=== PATIENT | female | born 1970 | race Caucasian/White ===

== ENCOUNTER 2019-11-12 13:48 | Day surgery (SDC) | payer OTHER, SELFPAY ==
[2019-11-11 08:04] VITALS: BMI 54.1
[2019-11-12] VITALS (11 sets, daily range): BP systolic 138–166; BP diastolic 80–133; PULSE 65–92; RESP 10–19; TEMP 36.6–37; O2SAT 96–100; BMI 54.1
[2019-11-12] MEDS: LACTATED RINGERS 1,000 ML 42 ML IV (14:33)
--- NOTE | 2019-11-12 15:21 | P.OP_ITS ---
Operative Date/Time/Diagnoses Date of procedure: 11/12/19 Time of procedure: 15:41 Pre-op diagnosis: Right knee pain with loose body Post-op diagnosis: same Procedure & Clinicians Procedure: Right knee arthroscopy with removal of loose body Same procedure as scheduled: Yes Indications: This is a 49-year-old female with incapacitating right knee pain and a history of fairly marked locking. Workup with radiographs and an MRI scan showed evidence of a loose body in she is brought the operating room for arthroscopy with repair is indicated. 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 He underwent the induction of a spinal anesthesia. There were carefully positioned on the operating table in a supine position with the non operative leg in well leg abdul and the operative leg had a tourniquet wrapped around it and then it was placed in a leg abdul. Antibiotics were given and a time-out was performed. The patient was prepped and draped in standard sterile fashion. Arthroscopy portals were established with a supra patellar lateral arthroscopic portal and a medial and lateral parapatellar portal. Scope was inserted into the knee. Knee was insufflated. Intraoperative findings were as noted above. Patient had some patellofemoral arthritic change, there was evidence of articular cartilage loss on the medial femoral condyle, and a loose body was found. Comprehensive diagnostic scope was performed including using the 70 degree scope to check postop the posterolateral in the posterior medial compartment. A loose body was found and removed with an arthroscopic grasper and a shaver. Only grossly loose articular cartilage was gently debrided from the medial femoral condyle. There was some fraying of the lateral meniscus which was gently debrided. Checked all of the compartments including both gutters. In the notch in the posterolateral compartment there was a small additional loose body that was densely adherent to the synovium and was not subluxable into the compartment. The knee was meticulously irrigated with normal saline. Portals were closed with interrupted 4 0 nylon. Marcaine with epinephrine was carefully injected. Steri-Strips were applied and the wound was dressed with sterile dressing. Patient tolerated the procedure well she was transferred recovery room in satisfactory condition. Complications none. Complications: none Post-operative Condition: stable Disposition: same day surgery Plan for aftercare: Weight-bearing as tolerated on right lower extremity. Okay to begin immediate quad strengthening exercises. Follow-up and suture removal at 10-14 days postoperatively. Use ice.
[2019-11-12] MEDS: CEFAZOLIN VIAL 3 GM in SODIUM CHLORIDE 0.9% 100 ML 200 ML IV (15:39)
--- NOTE | 2019-11-12 16:10 | SUR.OPER ---
Supine on padded OR bed, head on pillow, arms secured on padded arm boards at <90 degrees abduction, legs uncrossed, safety belt at thigh, right operative leg in metal knee abdul padded, left leg in asia stirrup
[2019-11-12] MEDS: BUPIVACAINE 0.25% W/ EPI 30 ML VIAL INJ (16:15)
[2019-11-12] MEDS: MEPERIDINE 50 MG/ML INJ 25 MG IV (17:02)
[2019-11-12] MEDS: HYDROCODONE/ACET 5/325 TABLET 1 TAB PO ×2 (17:10→17:42)
[2019-11-12] MEDS: fentaNYL 100 MCG/2 ML INJ IV ×2 (17:14→17:33)
--- NOTE | 2019-11-12 17:26 | SUR.PHASEI ---
Patient crying with c/o pain. Gave IV and oral pain medication.ice placed on operative site. Went over DC instructions.
[2019-11-12] MEDS: hydrOXYzine 50 MG/ML INJ 25 MG IM (17:49)
== END 2019-11-12 18:27 | disposition home or self-care (01) ==
PROVIDERS: Referring Provider Orthopaedic Surgery; Visit Provider Orthopaedic Surgery
PROC: (CPT 29870; principal; 2019-11-12 15:45)
DX: M23.41 Loose body in knee, right knee (principal); M17.11 Unilateral primary osteoarthritis, right knee; M94.261 Chondromalacia, right knee; M65.9 Synovitis and tenosynovitis, unspecified
CPT/HCPCS: 29881; J0690; J1100; J2175; J2250; J2405; J2704; J3010; J3410